=== PATIENT | female | born 1985 | race Caucasian/White ===

== ENCOUNTER 2020-11-02 07:19 | Emergency (ER) | payer OTHER, MEDICAID ==
[~2020-11-02] VITALS: Ht 165.1 cm; Wt 97.5 kg
[2020-11-02 07:53] LABS: HEMATOCRIT 38.5 % (37.0-47.0); MCH 29.8 pg (26.0-34.0); MCHC 33.7 g/dL (28.0-37.0); MCV 88.4 fL (80.0-100.0); MPV 8.1 fl. (7.2-11.1); RBC 4.36 mil/uL (4.20-5.00); RDW-CV 13.5 % (10.5-14.5); WBC 9.2 thou/uL (4.0-11.0)
[2020-11-02 08:02] LABS: CALCIUM 8.6 mg/dL (8.5-10.1); CREATININE 0.9 mg/dL (0.6-1.3); POTASSIUM 3.8 mmol/L (3.5-5.1)
[2020-11-02 08:06] LABS: ALBUMIN 3.9 g/dL (3.4-5.0); TOTAL BILIRUBIN 0.3 mg/dL (<0.1-1.0); TOTAL PROTEIN 7.7 g/dL (6.4-8.2)
[2020-11-02 08:42] LABS: URINE BILIRUBIN NEGATIVE (Negative); URINE BLOOD 3+ (Negative); URINE CLARITY CLEAR; URINE COLOR YELLOW; URINE GLUCOSE-RANDOM NEGATIVE (Negative); URINE KETONES NEGATIVE (Negative); URINE LEUKOCYTES-REFLEX 1+ (Negative); URINE NITRITE-REFLEX NEGATIVE (Negative); URINE PROTEIN TRACE (Negative); URINE SPECIFIC GRAVITY >= 1.030 (1.005-1.030); URINE UROBILINOGEN 0.2 E.U./dl (0.2-1.0)
[2020-11-02 08:56] LABS: SQUAMOUS >10 Many /LPF (0-3)
[2020-11-02 08:57] LABS: CASTS None Seen /LPF (None Seen); CRYSTALS None Seen /LPF (None Seen); MUCUS None Seen strn/LPF (None Seen); URINE RBC >20 Many /HPF (0-2); URINE WBC-REFLEX 6-15 Few /HPF (0-5); YEAST-REFLEX Present (None Seen)
[2020-11-02] MEDS ORDERED: ZOFRAN ODT4 MG PO (09:51)
[2020-11-02] MEDS ORDERED: FLOMAX0.4 MG PO (09:51)
[2020-11-02] MEDS ORDERED: HYDROCODON-ACE1 EAC7 PO (09:51)
[2020-11-02 10:13] VITALS: BP 137/92
== END 2020-11-02 10:13 | disposition home or self-care (01) ==
LOC: M.ERS 07:19
PROVIDERS: Personal Emergency Response Attendant
DX: N20.0 Calculus of kidney (principal)

== ENCOUNTER 2020-11-04 19:19 | Emergency (ER) | payer OTHER, MEDICAID ==
[~2020-11-04] VITALS: Ht 165.1 cm; Wt 97.5 kg
[~2020-11-04 19:19] MED LIST: FLOMAX0.4 MG PO; HYDROCODON-ACE1 EAC7 PO; ZOFRAN ODT4 MG PO
[2020-11-04 19:31] LABS: URINE BILIRUBIN NEGATIVE (Negative); URINE BLOOD 3+ (Negative); URINE COLOR YELLOW; URINE GLUCOSE-RANDOM NEGATIVE (Negative); URINE KETONES NEGATIVE (Negative); URINE LEUKOCYTES-REFLEX 1+ (Negative); URINE NITRITE-REFLEX NEGATIVE (Negative); URINE PROTEIN NEGATIVE (Negative); URINE UROBILINOGEN 0.2 E.U./dl (0.2-1.0)
[2020-11-04 19:32] LABS: URINE CLARITY HAZY
[2020-11-04 19:37] LABS: SQUAMOUS >10 Many /LPF (0-3)
[2020-11-04 19:38] LABS: BACTERIA-REFLEX None Seen /HPF (None Seen); CASTS None Seen /LPF (None Seen); CRYSTALS None Seen /LPF (None Seen); URINE RBC 0-2 Rare /HPF (0-2); URINE WBC-REFLEX 0-5 Rare /HPF (0-5)
[2020-11-04 20:12] LABS: ABSOLUTE BASOPHILS 0.1 thou/uL (0.0-0.2); ABSOLUTE EOSINOPHILS 0.1 thou/uL (0.0-0.7); ABSOLUTE LYMPHOCYTES 1.3 thou/uL (0.8-5.3); ABSOLUTE MONOCYTES 0.7 thou/uL (0.0-1.2); ABSOLUTE NEUTROPHILS 6.9 thou/uL (1.6-8.1); BASOPHILS 0.7 %; EOSINOPHILS 0.7 %; HEMATOCRIT 35.8 % (37.0-47.0); HEMOGLOBIN 12.1 gm/dL (12.0-15.0); LYMPHOCYTES 13.9 %; MCH 29.9 pg (26.0-34.0); MCHC 33.8 g/dL (28.0-37.0); MCV 88.4 fL (80.0-100.0); MONOCYTES 7.9 %; MPV 7.9 fl. (7.2-11.1); NUCLEATED RBCS 0 /100WBC; PLATELET COUNT* 206 thou/uL (150-400); POLYS 76.8 %; RBC 4.05 mil/uL (4.20-5.00); RDW-CV 13.4 % (10.5-14.5)
[2020-11-04 20:19] LABS: CALCIUM 8.7 mg/dL (8.5-10.1); CREATININE 1.3 mg/dL (0.6-1.3); POTASSIUM 3.5 mmol/L (3.5-5.1)
[2020-11-04] MEDS ORDERED: ZOFRAN ODT4 MG PO (21:27)
[2020-11-04] MEDS ORDERED: HYDROCODON-ACE1 EAC8 PO (21:27)
[2020-11-04] MEDS ORDERED: MACROBID 100 M100 M1 PO (21:45)
[2020-11-04 22:16] VITALS: BP 141/98
== END 2020-11-04 22:16 | disposition home or self-care (01) ==
LOC: M.ERS 19:19
PROVIDERS: Emergency Medicine
DX: N23 Unspecified renal colic (principal)